=== PATIENT | female | born 1950 | race Caucasian/White ===

== ENCOUNTER → 2019-03-05 | Outpatient (CLI) | payer MEDICARE, OTHER ==
[~2019-03-05] MED LIST: INSU100I14 SQ; INSU100V6 SQ; LISI10TA2 PO; [UNRECOGNIZED DRUG - CODE] SC
--- NOTE | 2019-03-05 11:31 | Diagnostic Imaging Report ---
Indication: Right hip pain 2 views of the right hip show no fracture or dislocation. Joint spaces well maintained. Articular surfaces are smooth. Impression: Negative right hip. Dictated by: Dictated on workstation # [id number]
--- NOTE | 2019-03-05 11:36 | Diagnostic Imaging Report ---
EXAMINATION: Left hip at 1122h. INDICATION: Hip pain AP and lateral views were obtained. There are no prior studies available for comparison. There is no fracture, dislocation or acute bony abnormality evident. The hip and sacral iliac joints are fairly well-maintained. The soft tissues are unremarkable. IMPRESSION: There is no evidence for an acute bony abnormality. Dictated by: Dictated on workstation # [id number]
== END ==
LOC: RAD FS 11:07
PROVIDERS: ATTEND Family Medicine
DX: M25.551 Pain in right hip (principal); M25.552 Pain in left hip
CPT/HCPCS: 73502

== ENCOUNTER → 2019-03-20 | Outpatient (CLI) | payer MEDICARE, OTHER ==
--- NOTE | 2019-03-20 10:19 | Diagnostic Imaging Report ---
PROCEDURE: MRI lumbar spine. TECHNIQUE: Multiplanar, multisequence MRI of the lumbar spine was performed without contrast. DATE: March 20, 2019. COMPARISON: None. INDICATION: 68-year-old female, chronic low back pain. FINDINGS: The alignment of the lumbar spine is unremarkable. There is no evidence of diffuse marrow infiltrating or replacing process. There is no compression deformity or other fracture. There is no concerning focal bone lesion. There is mild disc height loss at L4-L5. There is severe disc height loss at L5-S1. There are associated Modic endplate degenerative related changes. The visualized portions of the spinal cord are unremarkable in signal. The conus medullaris terminates at the level of L1-L2. L1-L2: There is no disc bulge. There are mild bilateral facet degenerative changes without ligamentum flavum hypertrophy. There is no foraminal stenosis. There is no spinal stenosis. L2-L3: There is no disc bulge. There are mild bilateral facet degenerative changes without ligamentum flavum hypertrophy. There is no foraminal stenosis. No spinal stenosis. L3-L4: There is no disc bulge. There are mild facet degenerative changes without ligamentum flavum hypertrophy. There is no foraminal stenosis. There is no spinal stenosis. L4-L5: There is diffuse disc bulge. There are advanced facet degenerative changes with ligamentum flavum hypertrophy. There is a small left facet joint effusion. There is mild bilateral foraminal stenosis. There is severe spinal stenosis. L5-S1: There is mild diffuse disc bulge. There are mild bilateral facet degenerative changes without ligamentum flavum hypertrophy. There is very mild bilateral foraminal narrowing. There is no spinal stenosis. IMPRESSION: 1. Multilevel disc and facet degenerative changes of the lumbar spine which are most notable at L4-L5 as described above. Dictated by: Dictated on workstation # [id number]
== END ==
LOC: RAD 08:32
PROVIDERS: ATTEND Nurse Practitioner
DX: M51.17 Intervertebral disc disorders with radiculopathy, lumbosacral region (principal); M47.27 Other spondylosis with radiculopathy, lumbosacral region; M48.07 Spinal stenosis, lumbosacral region
CPT/HCPCS: 72148

== ENCOUNTER 2021-02-05 17:00 | Emergency (ER) | payer MEDICARE, OTHER ==
[~2021-02-05] VITALS: Ht 157.5 cm; Wt 75.7 kg
[2021-02-05] MEDS ORDERED: diphenhydrAMINE 50 MG/ML INJ (BENADRYL) IVP ONE (17:15)
[2021-02-05] MEDS ORDERED: PROMETHAZINE INJ 25 MG/ML (PHENERGAN) AMP IVP ONE (17:15)
[2021-02-05] MEDS ORDERED: NS IV 1000 ML 1,000 ML IV SCH (17:15)
[2021-02-05 17:30] LABS: BASOPHILS # (AUTO) 0.1 10^3/uL (0.0-0.1); BASOPHILS % (AUTO) 1 % (0-10); EOSINOPHILS # (AUTO) 0.2 10^3/uL (0.0-0.3); EOSINOPHILS % (AUTO) 1 % (0-10); HEMATOCRIT 31 % (35-52); HEMOGLOBIN 10.3 G/DL (11.5-16.0); LYMPHOCYTES # (AUTO) 1.3 X 10^3 (1.0-4.0); LYMPHOCYTES % (AUTO) 12 % (12-44); MEAN CORPUSCULAR HEMOGLOBIN 29 PG (25-34); MEAN CORPUSCULAR HGB CONC 33 G/DL (32-36); MEAN CORPUSCULAR VOLUME 88 FL (80-99); MEAN PLATELET VOLUME 9.4 FL (7.4-10.4); MONOCYTES % (AUTO) 9 % (0-12); NEUTROPHILS % (AUTO) 77 % (42-75); PLATELET COUNT 443 10^3/uL (130-400); WHITE BLOOD COUNT 11.6 10^3/uL (4.3-11.0)
--- NOTE | 2021-02-05 17:39 | ED General ---
General Chief Complaint: Abdominal/GI Problems Stated Complaint: NAUSEA | HIGH BP History of Present Illness Date Seen by Provider: February 05, 2021 Time Seen by Provider: 17:37 Initial Comments Patient presenting to the emergency department for evaluation of nausea and vomiting that started today. She states that the emesis is nonbloody nonbilious and that she is passing gas but she has been constipated for the past 4 days. She had right knee surgery done at [facility] 3 days ago. She denies any abdominal pain chest pain back pain fevers or chills and she says the only area of pain that she has is her right knee but not more than expected. She says she took Zofran at approximately 4 PM and it did not help her symptoms. She was seen at an urgent care and told that she was likely dehydrated and needed to come to the emergency department. She is in no obvious distress. Allergies and Home Medications Allergies Coded Allergies: propoxyphene (Unverified Allergy, Unknown, 10/23/13) Uncoded Allergies: CODIENE (Allergy, Unknown, 10/23/13) Home Medications Insulin Aspart 100 Unit/1 Ml Insuln.pen, 10 UNITS SQ AC, (Reported) Insulin Glargine,Hum.rec.anlog 100 Unit/1 Ml Vial, 8 UNIT SQ AM, (Reported) Insulin Glargine,Hum.rec.anlog 100 Unit/1 Ml Vial, 8 UNITS SQ PM, (Reported) Insuln Asp Prt/Insulin Aspart 1 Unit/0.01 Ml Susp, 1 UNIT SC PRN, (Reported) Lisinopril 10 Mg Tablet, 10 MG PO DAILY, (Reported) Patient Home Medication List Home Medication List Reviewed: Yes Review of Systems Review of Systems Constitutional: no symptoms reported Respiratory: no symptoms reported Cardiovascular: no symptoms reported Gastrointestinal: constipation, nausea Genitourinary: no symptoms reported Musculoskeletal: joint pain Skin: no symptoms reported Psychiatric/Neurological: No Symptoms Reported All Other Systems Reviewed Negative Unless Noted: Yes Physical Exam Vital Signs Vital Signs - First Documented 02/05/21 17:00 Temp 37.2 Pulse 96 Resp 18 B/P (MAP) 115/92 (100) Pulse Ox 94 O2 Delivery Room Air Capillary Refill : Height, Weight, BMI Height: 5'2.00" Weight: 150lbs. oz. 68.712789ly; BMI Method: General Appearance: No Apparent Distress, WD/WN HEENT: PERRL/EOMI Neck: Supple Respiratory: No Respiratory Distress Cardiovascular: Regular Rate, Rhythm Gastrointestinal: Non Tender, Soft Extremity: Normal Capillary Refill Neurologic/Psychiatric: Alert, Oriented x3 Skin: Warm/Dry Progress/Results/Core Measures Suspected Sepsis SIRS Temperature: Pulse: Respiratory Rate: Laboratory Tests 02/05/21 17:15: White Blood Count 11.6H Blood Pressure / Mean: Laboratory Tests 02/05/21 17:15: Creatinine 0.75, Platelet Count 443H, Total Bilirubin 0.4 Results/Orders Lab Results Laboratory Tests Test 02/05/21 17:15 02/05/21 17:30 Range/Units White Blood Count 11.6 H 4.3-11.0 10^3/uL Red Blood Count 3.55 L 4.35-5.85 10^6/uL Hemoglobin 10.3 L 11.5-16.0 G/DL Hematocrit 31 L 35-52 % Mean Corpuscular Volume 88 80-99 FL Mean Corpuscular Hemoglobin 29 25-34 PG Mean Corpuscular Hemoglobin Concent 33 32-36 G/DL Red Cell Distribution Width 14.8 H 10.0-14.5 % Platelet Count 443 H 130-400 10^3/uL Mean Platelet Volume 9.4 7.4-10.4 FL Immature Granulocyte % (Auto) 0 % Neutrophils (%) (Auto) 77 H 42-75 % Lymphocytes (%) (Auto) 12 12-44 % Monocytes (%) (Auto) 9 0-12 % Eosinophils (%) (Auto) 1 0-10 % Basophils (%) (Auto) 1 0-10 % Neutrophils # (Auto) 9.0 H 1.8-7.8 X 10^3 Lymphocytes # (Auto) 1.3 1.0-4.0 X 10^3 Monocytes # (Auto) 1.0 0.0-1.0 X 10^3 Eosinophils # (Auto) 0.2 0.0-0.3 10^3/uL Basophils # (Auto) 0.1 0.0-0.1 10^3/uL Immature Granulocyte # (Auto) 0.0 0.0-0.1 10^3/uL Percent Immature Platelet Fraction 1.7 0.0-7.6 % Sodium Level 136 135-145 MMOL/L Potassium Level 4.0 3.6-5.0 MMOL/L Chloride Level 97 L 98-107 MMOL/L Carbon Dioxide Level 30 21-32 MMOL/L Anion Gap 9 5-14 MMOL/L Blood Urea Nitrogen 16 7-18 MG/DL Creatinine 0.75 0.60-1.30 MG/DL Estimat Glomerular Filtration Rate > 60 BUN/Creatinine Ratio 21 Glucose Level 139 H 70-105 MG/DL Calcium Level 9.3 8.5-10.1 MG/DL Corrected Calcium 9.8 8.5-10.1 MG/DL Total Bilirubin 0.4 0.1-1.0 MG/DL Aspartate Amino Transf (AST/SGOT) 22 5-34 U/L Alanine Aminotransferase (ALT/SGPT) 15 0-55 U/L Alkaline Phosphatase 110 40-136 U/L Troponin I < 0.30 <0.30 NG/ML Total Protein 7.3 6.4-8.2 GM/DL Albumin 3.4 3.2-4.5 GM/DL Lipase 7 L 8-78 U/L Urine Color YELLOW Urine Clarity CLEAR Urine pH 6.5 5-9 Urine Specific Dumont <=1.005 1.016-1.022 Urine Protein TRACE H NEGATIVE Urine Glucose (UA) NEGATIVE NEGATIVE Urine Ketones NEGATIVE NEGATIVE Urine Nitrite NEGATIVE NEGATIVE Urine Bilirubin NEGATIVE NEGATIVE Urine Urobilinogen 0.2 < = 1.0 MG/DL Urine Leukocyte Esterase NEGATIVE NEGATIVE Urine RBC (Auto) TRACE-I NEGATIVE Urine RBC NONE /HPF Urine WBC NONE /HPF Urine Squamous Epithelial Cells 2-5 /HPF Urine Crystals NONE /LPF Urine Bacteria NEGATIVE /HPF Urine Casts NONE /LPF Urine Mucus NEGATIVE /LPF Urine Culture Indicated NO My Orders Orders - EMILY WONG DO Iv/Invasive Line Insertion .IV start (02/05/21 17:14) Cbc With Automated Diff (02/05/21 17:14) Comprehensive Metabolic Panel (02/05/21 17:14) Ekg Tracing (02/05/21 17:14) Troponin I Fs (02/05/21 17:14) Ua Culture If Indicated (02/05/21 17:14) Lipase (02/05/21 17:14) Ns Iv 1000 Ml (Sodium Chloride 0.9%) (02/05/21 17:15) Promethazine Injection (Phenergan Injec (02/05/21 17:15) Diphenhydramine Injection (Benadryl Inje (02/05/21 17:15) Ct Abdomen/Pelvis W (02/05/21 17:41) Medications Given in ED Current Medications Medications Dose Ordered Sig/Malcom Route Start Time Stop Time Status Last Admin Dose Admin Diphenhydramine HCl 25 mg ONCE ONCE IVP 02/05/21 17:15 02/05/21 17:16 DC 02/05/21 17:45 25 MG Promethazine HCl 12.5 mg ONCE ONCE IVP 02/05/21 17:15 02/05/21 17:16 DC 02/05/21 17:45 12.5 MG Vital Signs/I&O 02/05/21 17:00 Temp 37.2 Pulse 96 Resp 18 B/P (MAP) 115/92 (100) Pulse Ox 94 O2 Delivery Room Air Capillary Refill : Progress Note : Progress Note Patient with nonspecific nausea and vomiting so we will check labs CT treat symptoms and reassess. Patient refused CT as she says she was told not to get a CT with her insulin pump unless it was covered by lead. The lead would completely obscured the CT as we will not pursue any imaging at this time. Patient's nausea has completely resolved and she was able to tolerate water by mouth with no difficulty. I told her I will prescribe her Phenergan for nausea second line and she can continue Zofran first-line and recommend stopping the tramadol as this might be causing her symptoms. Patient told to call her doctor tomorrow and get follow-up within the next 2 to 3 days and come back to the ED sooner with worsening pain fevers vomiting or other general concerns. Patient aware and agreeable with plan for discharge and verbalized understanding of the above instructions. Departure Impression Primary Impression: Nausea and vomiting Qualified Codes: R11.2 - Nausea with vomiting, unspecified Disposition: 01 HOME, SELF-CARE Condition: Stable Departure-Patient Inst. Referrals: KRYSTINA MACHUCA MD (PCP/Family) Primary Care Physician Patient Instructions: Nausea and Vomiting After Surgery Scripts Promethazine HCl (Promethazine Tablet) 25 Mg Tablet 25 MG PO Q6H PRN for NAUSEA/VOMITING, #10 TAB Prov: EMILY WONG DO 02/05/21 EMILY WONG DO February 05, 2021 17:39
[2021-02-05 17:44] LABS: CLARITY,URINE CLEAR; COLOR,URINE YELLOW; PH,URINE 6.5 (5-9); PROTEIN,URINE TRACE (NEGATIVE)
[2021-02-05 17:45] LABS: BACTERIA,URINE NEGATIVE /HPF; BILIRUBIN,URINE NEGATIVE (NEGATIVE); GLUCOSE, URINE (UA) NEGATIVE (NEGATIVE); KETONES,URINE NEGATIVE (NEGATIVE); LEUKOCYTE ESTERASE ,URINE NEGATIVE (NEGATIVE); NITRITE,URINE NEGATIVE (NEGATIVE)
[2021-02-05] MEDS ORDERED: HOLD METFORMIN - RECEIVED CONTRAST 20 ML VIAL IV SCH (17:45)
[2021-02-05] MEDS ORDERED: IOHEXOL 350 MG/ML 100 ML (OMNIPAQUE 350) VIAL IV ONE (17:45)
[2021-02-05] MEDS ORDERED: CATHETER FLUSH 10 ML SYR IV PRN (17:45)
[2021-02-05] MEDS ORDERED: NS 100 ML (IVPB) BAG IV ONE (17:45)
[2021-02-05 17:48] LABS: ALANINE AMINOTRANSFERASE 15 U/L (0-55); ALBUMIN 3.4 GM/DL (3.2-4.5); ALKALINE PHOSPHATASE 110 U/L (40-136); BILIRUBIN,TOTAL 0.4 MG/DL (0.1-1.0); BUN/CREATININE RATIO 21; CALCIUM 9.3 MG/DL (8.5-10.1); CARBON DIOXIDE 30 MMOL/L (21-32); CHLORIDE 97 MMOL/L (98-107); CREATININE SERUM 0.75 MG/DL (0.60-1.30); GFR ESTIMATED > 60; GLUCOSE 139 MG/DL (70-105); LIPASE 7 U/L (8-78); SODIUM 136 MMOL/L (135-145); TOTAL PROTEIN 7.3 GM/DL (6.4-8.2)
[2021-02-05] MEDS ORDERED: PROM25TA14 PO (18:17)
[2021-02-05] MEDS ORDERED: RX-PHENERGAN 25 MG SUPP PPK#3 ONE (18:28)
[2021-02-05 18:30] VITALS: BP 189/91
== END 2021-02-05 18:30 | disposition home or self-care (01) ==
LOC: EDUNIT# 17:00 → ER FS 17:02
DX: R11.2 Nausea with vomiting, unspecified (principal); Z88.5 Allergy status to narcotic agent; Z88.8 Allergy status to other drugs, medicaments and biological substances
CPT/HCPCS: 36415; 80053; 81000; 83690; 84484; 85025; 93005

== ENCOUNTER 2021-12-27 13:00 | Outpatient (CLI) | payer MEDICARE | END 2021-12-27 13:55 | LOC: SLEEP 13:00 | PROVIDERS: ATTEND Internal Medicine Cardiovascular Disease | DX: G47.33 Obstructive sleep apnea (adult) (pediatric) (principal); I10 Essential (primary) hypertension | CPT/HCPCS: G0399 ==

== ENCOUNTER → 2021-12-27 | Outpatient (CLI) | payer MEDICARE ==
[~2021-12-27] MED LIST changes: +PROM25TA14 PO
== END ==
LOC: CARD 12:57
PROVIDERS: ATTEND Internal Medicine Cardiovascular Disease
DX: I11.9 Hypertensive heart disease without heart failure (principal); I35.8 Other nonrheumatic aortic valve disorders; I25.10 Atherosclerotic heart disease of native coronary artery without angina pectoris
CPT/HCPCS: 93306

== ENCOUNTER → 2022-01-15 | Outpatient (CLI) | payer MEDICARE ==
[~2022-01-15] VITALS: Ht 157 cm; Wt 79.0 kg
[~2022-01-15] MED LIST changes: +CATHETER FLUSH 10 ML SYR IVP PRN
[2022-01-15 08:54] VITALS: BP 179/72
--- NOTE | 2022-01-15 12:29 | Cardiology Stress Test Report ---
Stress Test Report Date of Procedure/Referring: Date of Procedure: Jan 15, 2022 PCP Surekha Phan MD Admitting Physician Krystina Gonsalves MD Indications: HTN Baseline Heart Rate: 86 Baseline Blood Pressure: Blood Pressure Systolic: 179 Blood Pressure Diastolic: 72 Vital Signs Date Time Temp Pulse Resp B/P (MAP) Pulse Ox O2 Delivery O2 Flow Rate FiO2 01/15/22 08:54 86 179/72 (107) 98 Baseline Vital Signs Vital Signs Date Time Temp Pulse Resp B/P (MAP) Pulse Ox O2 Delivery O2 Flow Rate FiO2 01/15/22 08:54 86 179/72 (107) 98 Baseline EKG: Baseline EKG: NSR Summary: After explaining the procedure and details to the patient, she signed the consent and was brought to the stress nuclear laboratory. Patient exercised on standard Shaun protocol, EKG, heart rate and blood pressure were monitored continuously, resting and stress doses of radio tracer were injected, imaging was acquired and reviewed in the short axis, horizontal long axis and vertical long axis views Patient was able to exercise for a total of 6 minutes on Shaun protocol, METs 7.3 Maximum heart rate 131 Maximum blood pressure 226/112 Stress EKG, Minimal nondiagnostic changes Recovery EKG, Return to baseline TID: 1.12 SSS: 3 SDS: 3 EF: 72 Conclusion: 1. Fair exercise tolerance for a total of 6 minutes on standard Shaun protocol, 7.3 METS achieving 89% of maximal expected heart rate 2. Appropriate heart rate response to exercise with severe hypertensive response to exercise with peak blood pressure 226/112 return to baseline during recovery 3. Nondiagnostic EKG changes with exercise return to baseline during recovery 4. No ischemia or infarction was noted on SPECT images 5. Normal left ventricular size with normal contractility, ejection fraction 72% Copy Copies To 1: KRYSTINA GONSALVES MD, BASHAR J MD Jan 15, 2022 12:29
== END ==
LOC: CARD 08:00
PROVIDERS: ATTEND Internal Medicine Cardiovascular Disease
DX: I10 Essential (primary) hypertension (principal); I25.10 Atherosclerotic heart disease of native coronary artery without angina pectoris
CPT/HCPCS: 78452; 93017; A9502